=== PATIENT | female | born 1995 ===

== ENCOUNTER 2018-06-27 17:48 | Emergency (ER) | payer SELFPAY ==
[2018-06-27 17:48] VITALS: BMI 38.7
[2018-06-27 18:08] VITALS: RESP 20; O2SAT 99
--- NOTE | 2018-06-27 18:49 | C.PDOC ---
History Of Present Illness 22 year old female, who is currently around 4 months , presents to the ED for evaluation of headache, nasal congestion, generalized body aches and tactile fever which began today. Patient denies shortness of breath, chest pain, abdominal pain, vaginal bleeding/discharge. Patient is currently receiving care. Time Seen by Provider: 06/27/18 18:16 Chief Complaint (Nursing): Headache History Per: Patient History/Exam Limitations: no limitations Onset/Duration Of Symptoms: Hrs Current Symptoms Are (Timing): Still Present Past Medical History Reviewed: Historical Data, Nursing Documentation, Vital Signs Vital Signs: Last Vital Signs Temp 97.7 F 06/27/18 18:06 Pulse 108 H 06/27/18 18:06 Resp 20 06/27/18 18:06 BP 117/68 06/27/18 18:06 Pulse Ox 99 06/27/18 18:06 - Medical History PMH: No Chronic Diseases Surgical History: No Surg Hx - [facility] Procedures LOW CERVICAL (12/11/14) Family History: States: Unknown Family Hx - Social History Hx Alcohol Use: No Hx Substance Use: No Review Of Systems Constitutional: Positive for: Fever ENT: Positive for: Nose Congestion Cardiovascular: Negative for: Chest Pain Respiratory: Negative for: Shortness of Breath Genitourinary: Negative for: Vaginal Discharge, Vaginal Bleeding Musculoskeletal: Positive for: Other (body aches ) Neurological: Positive for: Headache Physical Exam - Physical Exam Appears: Non-toxic, No Acute Distress Skin: Normal Color, Warm, Dry Head: Atraumatic, Normacephalic Eye(s): bilateral: Normal Inspection Ear(s): Bilateral: Other (fluid behind TM ) Nose: Other (bilateral turbinates are swollen and pink ) Oral Mucosa: Moist Throat: Normal, No Erythema, No Exudate Neck: Supple Chest: Symmetrical, No Deformity, No Tenderness Cardiovascular: Rhythm Regular, No Murmur Respiratory: Normal Breath Sounds, No Rales, No Rhonchi, No Wheezing Gastrointestinal/Abdominal: Soft, No Tenderness, No Guarding, No Rebound, Other (gravid ) Extremity: Normal ROM, Capillary Refill (less than 2 seconds ) Neurological/Psych: Oriented x3, Normal Speech, Normal Cognition ED Course And Treatment O2 Sat by Pulse Oximetry: 99 (on RA) Pulse Ox Interpretation: Normal Medical Decision Making Medical Decision Making: Progress: Will treat patient for presumed flu. Tamiflu PO given. Explained to patient that since she is , it is safer to treat her empirically. On reassessment, patient is resting comfortably, showing no signs of distress, and is stable for discharge. Patient advised to f/u with her RISK AND INSURANCE MANAGER within 1-2 days for further evaluation. Disposition Counseled Patient/Family Regarding: Diagnosis, Need For Followup - Disposition Referrals: [facility] [Outside] [facility] [Outside] Disposition: HOME/ ROUTINE Disposition Time: 19:13 Condition: GOOD Additional Instructions: JON GONZALEZ, thank you for letting us take care of you today. Your provider was Justyna Felix MD and you were treated for HEADACHE. The emergency medical care you received today was directed at your acute symptoms. If you were prescribed any medication, please fill it and take as directed. It may take several days for your symptoms to resolve. Return to the Emergency Department if your symptoms worsen, do not improve, or if you have any other problems. Please contact your doctor or call one of the physicians/clinics you have been referred to that are listed on the Patient Visit Information form that is included in your discharge packet. Bring any paperwork you were given at discharge with you along with any medications you are taking to your follow up visit. Our treatment cannot replace ongoing medical care by a primary care provider outside of the emergency department. Thank you for allowing the [facility] team to be part of your care today. Prescriptions: Oseltamivir Phosphate [Tamiflu] 75 mg PO BID #9 capsule Instructions: Flu, Adult (DC), and the Flu Forms: Gen Discharge Inst Stateless, [place] (Stateless) Print Language: SLOVENIAN - POA Present On Arrival: None - Clinical Impression Clinical Impression: Influenza-like illness - Scribe Statement The provider has reviewed the documentation as recorded by the Scribe (Kathy Ledesma) Provider Attestation: All medical record entries made by the Scribe were at my direction and personally dictated by me. I have reviewed the chart and agree that the record accurately reflects my personal performance of the history, physical exam, medical decision making, and the department course for this patient. I have also personally directed, reviewed, and agree with the discharge instructions and disposition.
[2018-06-27 19:27] VITALS: BP 120/70; PULSE 100; TEMP 98
== END 2018-06-27 19:25 | disposition home or self-care (01) ==
LOC: C.ER 17:48
DX: J11.1 Influenza due to unidentified influenza virus with other respiratory manifestations (principal)

== ENCOUNTER 2018-08-23 09:55 | Outpatient (CLI) | payer SELFPAY | END 2018-08-23 09:56 | disposition home or self-care (01) | LOC: C.LAB 09:55 | DX: O34.211 Maternal care for low transverse scar from previous cesarean delivery (principal) ==